=== PATIENT | male | born 2000 ===

== ENCOUNTER → 2023-04-17 | Outpatient (CLI) | payer OTHER ==
[2023-04-18 10:07] LABS: Mumps IgG Antibody 84.7 AU/mL (Immune >10.9); Rubeola IgG Antibody 53.5 AU/mL (Immune >16.4)
== END | disposition home or self-care (01) ==
LOC: LAB 15:11
PROVIDERS: ATTEND Licensed Practical Nurse
DX: Z01.84 Encounter for antibody response examination (principal)
CPT/HCPCS: 36415; 86706; 86735; 86762; 86765; 86787